=== PATIENT | male | born 1965 | race Caucasian/White ===

== ENCOUNTER 2016-11-20 13:53 | Emergency (ER) | payer OTHER ==
[2016-11-20 17:16] LABS: HEMOGLOBIN 15.1 gm/dl (14.0-17.5); RED BLOOD COUNT 4.67 M/UL (4.20-5.50); WHITE BLOOD COUNT 6.6 K/UL (4.5-11.0)
[2016-11-20 17:34] LABS: BUN/CREATININE RATIO 16 (0-10)
== END 2016-11-20 21:29 | disposition home or self-care (01) ==
LOC: ER1 13:53
PROVIDERS: Emergency Medicine
DX: K57.92 Diverticulitis of intestine, part unspecified, without perforation or abscess without bleeding (principal); K52.9 Noninfective gastroenteritis and colitis, unspecified
CPT/HCPCS: 36415; 80053; 81001; 83605; 83690; 85025; 87086; 96361; 96374; 96375; 99284; J2270; J2405; J7030; J7050; Q9962